=== PATIENT | female | born 1950 | race Caucasian/White ===

== ENCOUNTER 2021-08-26 20:55 | Observation (INO) | payer BC, OTHER ==
[2021-08-26] MEDS ORDERED: DIPHTH,PERTUSS(ACELL),TET 0.5 ML DISP.SYRIN IM ONE ×2 (21:31→21:34)
[2021-08-26] MEDS ORDERED: ACETAMINOPHEN 500 MG TABLET (FP) ONE (22:57)
[2021-08-26] MEDS ORDERED: ACETAMINOPHEN 500 MG TABLET (FP) PO ONE (23:37)
[2021-08-27 01:36] LABS: BASO % 0.5 % (0-2.0); EOS % 1.7 % (0-4.5); HEMATOCRIT 36.7 % (32.4-45.2); HEMOGLOBIN 12.5 GM/dL (10.7-15.3); LYMPH % 14.8 % (8-40); MCH 29.7 pg (25.7-33.7); MCHC 34.1 g/dl (32.0-36.0); MEAN PLT VOLUME 8.6 fl (7.5-11.1); MONO % 7.6 % (3.8-10.2); NEUT % 75.4 % (42.8-82.8); PLATELET COUNT 249 10^3/uL (134-434); RBC 4.22 M/mm3 (3.60-5.2); WHITE BLOOD COUNT 11.9 K/mm3 (4.0-10.0)
[2021-08-27] MEDS ORDERED: ALPRAZolam 1 MG TABLET PO STA (01:38)
[2021-08-27 01:42] LABS: INR 0.86 (0.83-1.09); PROTHROMBIN TIME (PATIENT) 10.6 SEC (9.7-13.0)
[2021-08-27] MEDS ORDERED: ALPRAZolam 0.25 MG TABLET ONE (01:43)
[2021-08-27 01:45] LABS: ACTIVATED PTT 26.7 SECONDS (25.2-36.5)
[2021-08-27 02:10] LABS: ALBUMIN 3.5 g/dl (3.4-5.0); BLOOD UREA NITROGEN 14.2 mg/dL (7-18); CALCIUM 9.1 mg/dL (8.5-10.1)
[2021-08-27 02:13] LABS: CREATININE 0.7 mg/dL (0.55-1.3)
[2021-08-27 02:15] LABS: BILIRUBIN,TOTAL 0.6 mg/dL (0.2-1); TOT PROT 6.9 g/dl (6.4-8.2)
[2021-08-27] MEDS ORDERED: POLYETHYLENE GLYCOL (HEALTHYLAX) 3350 17 GM PACKET PO PRN (02:30)
[2021-08-27] MEDS ORDERED: BUDESONIDE 0.5 MG/2 ML INH SUSP VIAL NEB PRN (02:47)
[2021-08-27 04:46] VITALS: BMI 34.9
[2021-08-27] MEDS: LEVOTHYROXINE NA 75 MCG TABLET (FP) PO SCH (06:15)
[2021-08-27] MEDS ORDERED: BACITRACIN 15 GM TUBE TOPICAL OINTMENT TP SCH (10:00)
[2021-08-27] MEDS: FLUTICASONE/UMECLIDIN/VILANTER(100-62.5-25 TRELEGY ELLIPTA) INAHLER IH SCH (11:31)
[2021-08-27] MEDS: CITALOPRAM HYDROBROMIDE 20 MG TABLET PO SCH (11:31)
[2021-08-27] MEDS: LOSARTAN POTASSIUM 50 MG TABLET PO SCH (11:31)
[2021-08-27] MEDS: ACETAMINOPHEN 325 MG TABLET (FP) PO PRN ×2 (16:18→21:16)
[2021-08-27] MEDS ORDERED: ALPRAZolam 0.25 MG TABLET PO PRN (21:51)
[2021-08-27] MEDS ORDERED: ROSUVASTATIN CA 5 MG TABLET (FP) PO SCH (22:00)
[2021-08-28 01:11] VITALS: PULSE 90
[2021-08-28] MEDS: LEVOTHYROXINE NA 75 MCG TABLET (FP) PO SCH (06:43)
[2021-08-28 09:51] LABS: HEMOGLOBIN 14.3 GM/dl (10.7-15.3); RBC 4.75 M/mm3 (3.60-5.2); WHITE BLOOD COUNT 5.9 K/mm3 (4.0-10.8)
[2021-08-28 09:52] LABS: BASO % 0.6 % (0-2.0); EOS % 2.9 % (0-4.5); HEMATOCRIT 42.1 % (32.4-45.2); LYMPH % 20.6 % (8-40); MCHC 33.8 g/dl (32.0-36.0); MEAN CELL VOLUME 88.8 fl (80-96); MEAN PLT VOLUME 9.5 fl (7.5-11.1); MONO % 10.6 % (3.8-10.2); NEUT % 65.3 % (42.8-82.8); PLATELET COUNT 190 10^3/uL (134-434); RDW 13.6 % (11.6-15.6)
[2021-08-28] MEDS: CITALOPRAM HYDROBROMIDE 20 MG TABLET PO SCH (09:55)
[2021-08-28] MEDS: LOSARTAN POTASSIUM 50 MG TABLET PO SCH (09:55)
[2021-08-28] MEDS: FLUTICASONE/UMECLIDIN/VILANTER(100-62.5-25 TRELEGY ELLIPTA) INAHLER IH SCH (09:57)
[2021-08-28 10:11] VITALS: BP 139/70; TEMP 98.2
[2021-08-28 10:15] LABS: CREATININE 0.7 mg/dl (0.55-1.3)
[2021-08-28 10:16] LABS: CALCIUM 8.7 mg/dl (8.5-10)
== END 2021-08-28 10:55 | disposition home or self-care (01) ==
LOC: FER 20:55 → INTOOBSV 08-27 03:39 → FM/S 08-27 03:39
PROVIDERS: ADMIT Internal Medicine; ATTEND Nurse Practitioner Acute Care
PROC: 3E0234Z Introduction of Serum, Toxoid and Vaccine into Muscle, Percutaneous Approach (ICD-10-PCS; principal; 2021-08-27)
PROC: 0HQBXZZ Repair Right Upper Arm Skin, External Approach (ICD-10-PCS; 2021-08-27)
DX: S06.4X9A Epidural hemorrhage with loss of consciousness of unspecified duration, initial encounter (principal); S51.011A Laceration without foreign body of right elbow, initial encounter; I10 Essential (primary) hypertension; E78.5 Hyperlipidemia, unspecified; F41.9 Anxiety disorder, unspecified; J44.9 Chronic obstructive pulmonary disease, unspecified; Z87.891 Personal history of nicotine dependence; E66.9 Obesity, unspecified; Z68.34 Body mass index [BMI] 34.0-34.9, adult; Z90.09 Acquired absence of other part of head and neck; E03.9 Hypothyroidism, unspecified; D72.829 Elevated white blood cell count, unspecified; W18.39XA Other fall on same level, initial encounter; Y93.89 Activity, other specified; Y92.89 Other specified places as the place of occurrence of the external cause
CPT/HCPCS: 36415; 70450-TC; 70553-TC; 71045-TC-FY; 73030-TC-RT-FY; 73070-TC-RT-FY; 80048; 80053; 81003; 85025; 85610; 85730; 90715; 93005; 99285-25; A9579; C9803; G0378; U0003; U0005

== ENCOUNTER 2022-05-26 22:23 | Observation (INO) | payer OTHER ==
[2022-05-27 00:58] LABS: HEMATOCRIT 37.3 % (32.4-45.2); HEMOGLOBIN 12.5 GM/dL (10.7-15.3); MCH 30.1 pg (25.7-33.7); MCHC 33.6 g/dl (32.0-36.0); MEAN CELL VOLUME 89.5 fl (80-96); MEAN PLT VOLUME 9.2 fl (7.5-11.1); PLATELET COUNT 298 10^3/uL (134-434); RBC 4.17 M/mm3 (3.60-5.2); RDW 14.5 % (11.6-15.6)
[2022-05-27 01:16] LABS: CALCIUM 9.2 mg/dL (8.5-10.1)
[2022-05-27 01:17] LABS: ALBUMIN 3.5 g/dl (3.4-5.0); BLOOD UREA NITROGEN 18.4 mg/dL (7-18)
[2022-05-27 01:20] LABS: CREATININE 0.7 mg/dL (0.55-1.3)
[2022-05-27 01:21] LABS: BILIRUBIN,TOTAL 0.5 mg/dL (0.2-1)
[2022-05-27 01:22] LABS: TOT PROT 6.8 g/dl (6.4-8.2)
[2022-05-27] MEDS ORDERED: ALPRAZolam 0.25 MG TABLET PO ONE (01:23)
[2022-05-27] MEDS ORDERED: LOSARTAN POTASSIUM 50 MG TABLET PO ONE (01:23)
[2022-05-27] MEDS ORDERED: ALBUTEROL SO4 2.5/IPRATROPIUM 0.5 INH SOL 3 ML VIAL.NEB. NEB ONE ×2 (01:24→01:28)
[2022-05-27] MEDS ORDERED: ALPRAZolam 0.25 MG TABLET ONE ×2 (01:28→02:19)
[2022-05-27] MEDS ORDERED: LOSARTAN POTASSIUM 50 MG TABLET ONE (01:28)
[2022-05-27] MEDS ORDERED: ALPRAZolam 1 MG TABLET PO PRN (02:18)
[2022-05-27] MEDS ORDERED: ACETAMINOPHEN 500 MG TABLET (FP) ONE (06:46)
[2022-05-27] MEDS ORDERED: METOPROLOL TARTRATE 25 MG TABLET (FP) PO ONE (08:24)
[2022-05-27 09:43] VITALS: BMI 35.7
[2022-05-27] MEDS ORDERED: ASPIRIN COATED 81 MG TABLET.EC PO SCH (10:00)
[2022-05-27] MEDS ORDERED: FLUTICASONE/UMECLIDIN/VILANTER(100-62.5-25 TRELEGY ELLIPTA) INAHLER IH SCH (11:15)
[2022-05-27] MEDS ORDERED: PATIENT'S OWN MEDICATION (NON-FORMULARY) (Alprazolam [Alprazolam] 0.5 MG Tablet) PO PRN (11:17)
[2022-05-27] MEDS ORDERED: CITALOPRAM HYDROBROMIDE 20 MG TABLET PO SCH (11:30)
[2022-05-27] MEDS ORDERED: PATIENT'S OWN MEDICATION (NON-FORMULARY) (Alprazolam [Alprazolam] 0.5 MG) PO PRN (11:30)
[2022-05-27] MEDS ORDERED: ENOXAPARIN NA (PORCINE) 40 MG/0.4 ML DISP.SYRIN SQ SCH (11:30)
[2022-05-27] MEDS ORDERED: ALBUTEROL SO4 2.5/IPRATROPIUM 0.5 INH SOL 3 ML VIAL.NEB. NEB PRN (11:41)
[2022-05-27 14:37] VITALS: BP 151/70; PULSE 80; TEMP 98.2
[2022-05-27] MEDS ORDERED: ROSUVASTATIN CA 10 MG TABLET PO SCH (22:00)
[2022-05-28] MEDS ORDERED: LEVOTHYROXINE NA 88 MCG TABLET (FP) PO SCH ×2 (06:00→11:27)
[2022-05-28] MEDS ORDERED: LOSARTAN POTASSIUM 50 MG TABLET PO SCH (10:00)
[2022-05-28] MEDS ORDERED: LEVOTHYROXINE NA 75 MCG TABLET (FP) PO SCH (10:00)
== END 2022-05-27 13:30 | disposition home or self-care (01) ==
LOC: FER 22:23 → SUPCPDRO 22:23 → FM/S 05-27 04:48
PROVIDERS: ADMIT Internal Medicine; ATTEND Nurse Practitioner Family
PROC: 3E0F7GC Introduction of Other Therapeutic Substance into Respiratory Tract, Via Natural or Artificial Opening (ICD-10-PCS; principal; 2022-05-27)
PROC: 3E023GC Introduction of Other Therapeutic Substance into Muscle, Percutaneous Approach (ICD-10-PCS; 2022-05-27)
DX: R29.90 Unspecified symptoms and signs involving the nervous system (principal); R94.31 Abnormal electrocardiogram [ECG] [EKG]; I25.10 Atherosclerotic heart disease of native coronary artery without angina pectoris; R47.1 Dysarthria and anarthria; I11.0 Hypertensive heart disease with heart failure; I50.30 Unspecified diastolic (congestive) heart failure; F41.9 Anxiety disorder, unspecified; I11.9 Hypertensive heart disease without heart failure; D32.9 Benign neoplasm of meninges, unspecified; J44.9 Chronic obstructive pulmonary disease, unspecified; E07.9 Disorder of thyroid, unspecified; E78.00 Pure hypercholesterolemia, unspecified; E66.9 Obesity, unspecified; Z68.35 Body mass index [BMI] 35.0-35.9, adult; R25.3 Fasciculation; K21.9 Gastro-esophageal reflux disease without esophagitis; Z87.891 Personal history of nicotine dependence
CPT/HCPCS: 36415; 70450-TC; 80053; 80061; 82607; 83036; 84443; 84484; 85025; 93005; 94640; 96372; 99285-25; C9803-CS; G0378; U0003; U0005

== ENCOUNTER 2022-11-09 04:31 | Day surgery (SDC) | payer OTHER ==
[2022-11-06 14:16] VITALS: BMI 35.2
[2022-11-09] MEDS ORDERED: LIDOCAINE VISCOUS 2% ORAL/TOP 15 ML UNIT-DOSE CUP ONE (12:02)
[2022-11-09 12:29] VITALS: TEMP 98
[2022-11-09 12:55] VITALS: BP 126/61; PULSE 93; RESP 17
== END 2022-11-09 12:54 | disposition home or self-care (01) ==
LOC: JASU-ENDO 04:31
PROVIDERS: ATTEND Internal Medicine Gastroenterology
PROC: 0DB68ZX Excision of Stomach, Via Natural or Artificial Opening Endoscopic, Diagnostic (ICD-10-PCS; 2022-11-09)
PROC: 0DB58ZX Excision of Esophagus, Via Natural or Artificial Opening Endoscopic, Diagnostic (ICD-10-PCS; principal; 2022-11-09 11:30)
DX: K22.70 Barrett's esophagus without dysplasia (principal); K29.50 Unspecified chronic gastritis without bleeding; K21.00 Gastro-esophageal reflux disease with esophagitis, without bleeding
CPT/HCPCS: 88305-TC; 88342-TC

== ENCOUNTER 2023-08-28 14:31 | Emergency (ER) | payer OTHER ==
[2023-08-28 14:55] VITALS: BP 140/66; PULSE 74; RESP 18; TEMP 98.9; BMI 35.6
[2023-08-28] MEDS ORDERED: IBUPROFEN 400 MG TABLET (FP) PO ONE ×2 (16:17→16:25)
[2023-08-28] MEDS ORDERED: LIDOCAINE 5% TOPICAL PATCH TP ONE (16:18)
[2023-08-28] MEDS ORDERED: LIDOCAINE 5% TOPICAL PATCH ONE (16:25)
[2023-08-28] MEDS ORDERED: LIDOCAINE PATCH REMOVAL MC SCH (22:00)
== END 2023-08-28 18:33 | disposition home or self-care (01) ==
LOC: FER 14:31
DX: M25.551 Pain in right hip (principal); M54.50 Low back pain, unspecified; W01.0XXA Fall on same level from slipping, tripping and stumbling without subsequent striking against object, initial encounter
CPT/HCPCS: 72170-TC-FY; 73502-TC-RT-FY; 99283-25

== ENCOUNTER 2024-01-03 04:31 | Day surgery (SDC) | payer OTHER ==
[2024-01-01 11:12] VITALS: BMI 34.5
[2024-01-03 11:07] VITALS: TEMP 98.2
[2024-01-03 11:48] VITALS: BP 150/59; PULSE 76; RESP 15
== END 2024-01-03 12:03 | disposition home or self-care (01) ==
LOC: JASU-ENDO 04:31
PROVIDERS: ATTEND Internal Medicine Gastroenterology
PROC: 0DB98ZX Excision of Duodenum, Via Natural or Artificial Opening Endoscopic, Diagnostic (ICD-10-PCS; 2024-01-03)
PROC: 0DB78ZX Excision of Stomach, Pylorus, Via Natural or Artificial Opening Endoscopic, Diagnostic (ICD-10-PCS; 2024-01-03)
PROC: 0DJD8ZZ Inspection of Lower Intestinal Tract, Via Natural or Artificial Opening Endoscopic (ICD-10-PCS; principal; 2024-01-03 10:30)
DX: Z12.11 Encounter for screening for malignant neoplasm of colon (principal); D50.9 Iron deficiency anemia, unspecified; K29.50 Unspecified chronic gastritis without bleeding; Z80.0 Family history of malignant neoplasm of digestive organs
CPT/HCPCS: 43239; G0105; 88305-TC; 88342-TC

== ENCOUNTER 2024-05-26 17:24 | Emergency (ER) | payer OTHER ==
[2024-05-26 17:49] VITALS: BP 143/68; PULSE 75; RESP 16; TEMP 98.3; BMI 33.6
[2024-05-26] MEDS ORDERED: ACETAMINOPHEN 325 MG TABLET (FP) ONE (19:19)
[2024-05-26] MEDS: ACETAMINOPHEN 325 MG TABLET (FP) PO ONE (19:22)
== END 2024-05-26 19:50 | disposition home or self-care (01) ==
LOC: FER 17:24
DX: S41.111A Laceration without foreign body of right upper arm, initial encounter (principal); S41.112A Laceration without foreign body of left upper arm, initial encounter; S20.211A Contusion of right front wall of thorax, initial encounter; V43.52XA Car driver injured in collision with other type car in traffic accident, initial encounter; Y92.410 Unspecified street and highway as the place of occurrence of the external cause
CPT/HCPCS: 71046-TC-FY; 99283-25

== ENCOUNTER 2024-09-12 15:22 | Emergency (ER) | payer OTHER ==
[2024-09-12 15:40] VITALS: PULSE 83; RESP 18; TEMP 99; BMI 33.8
[2024-09-12 16:57] VITALS: BP 156/76
== END 2024-09-12 16:59 | disposition home or self-care (01) ==
LOC: FER 15:22
DX: R21 Rash and other nonspecific skin eruption (principal); B02.9 Zoster without complications
CPT/HCPCS: 81003; 87086; 99283-25